=== PATIENT | female | born 1995 ===

== ENCOUNTER 2018-08-06 11:10 | Emergency (ER) | payer BC ==
[2018-08-06 12:15] VITALS: BP 121/64
--- NOTE | 2018-08-06 13:16 | UC ---
Complaint Female HPI - HPI Summary HPI Summary: dysuria, with frequency, no flank pain or fever , - History Of Current Complaint Chief Complaint: UCGU Stated Complaint: URINARY Time Seen by Provider: 08/06/18 13:05 Hx Obtained From: Patient Hx Last Menstrual Period: 07/26/18 ?: No Onset/Duration: Lasting Hours Timing: Intermittent Severity Initially: Moderate Severity Currently: Moderate Pain Intensity: 0 Aggravating Factor(s): Urination Associated Signs And Symptoms: Positive: Negative - Allergies/Home Medications Allergies/Adverse Reactions: Allergies Allergy/AdvReac Type Severity Reaction Status Date / Time No Known Allergies Allergy Verified 08/06/18 12:11 Home Medications: Home Medications Oral Contraceptive 1 tab PO DAILY 08/06/18 [History] PMH/Surg Hx/FS Hx/Imm Hx Previously Healthy: Yes - Surgical History Surgical History: None - Social History Alcohol Use: Occasionally Substance Use Type: None Smoking Status (MU): Never Smoked Tobacco Review of Systems Constitutional: Negative Skin: Negative Eyes: Negative ENT: Negative Respiratory: Negative Cardiovascular: Negative Gastrointestinal: Negative Genitourinary: Negative Motor: Negative Neurovascular: Negative Musculoskeletal: Negative All Other Systems Reviewed And Are Negative: Yes Physical Exam Triage Information Reviewed: Yes Appearance: Well-Appearing Vital Signs: Initial Vital Signs Temp 36.9 C 08/06/18 12:09 Pulse 62 08/06/18 12:09 Resp 12 08/06/18 12:09 BP 121/64 08/06/18 12:09 Pulse Ox 98 08/06/18 12:09 Vital Signs Reviewed: Yes Eye Exam: Normal ENT Exam: Normal Abdominal Exam: Normal Abdomen Description: Positive: Nontender Complaint Female Dx - Differential Dx/Diagnosis Provider Diagnoses: urinary tract infection Discharge - Sign-Out/Discharge Documenting (check all that apply): Patient Departure All imaging exams completed and their final reports reviewed: Yes - Discharge Plan Condition: Fair Disposition: HOME Prescriptions: Ciprofloxacin TAB* [Cipro 250 MG Tab*] 250 mg PO BID #8 tab Patient Education Materials: Urinary Tract Infection in Women (ED) Referrals: No Primary Care Phys,NOPCP [Primary Care Provider] - - Billing Disposition and Condition Condition: FAIR Disposition: Home
== END 2018-08-06 13:24 | disposition home or self-care (01) ==
LOC: UCCORT 11:10
DX: N39.0 Urinary tract infection, site not specified (principal); B96.20 Unspecified Escherichia coli [E. coli] as the cause of diseases classified elsewhere
CPT/HCPCS: 81003; 84702; 87086; 99202; G0463